=== PATIENT | female | born 1940 | race Caucasian/White ===

== ENCOUNTER 2016-10-25 11:49 | Day surgery (SDC) | payer MEDICARE, BC ==
[~2016-10-25 11:49] MED LIST: Acetaminophen TAB* 325 MG PO PRN; Buffered Lidocaine 0.9% SYRIN* 5 ML/SYR SYRINGE INTRADERM ONE; Ondansetron INJ* 2 MG/ML VIAL IV PRN
[2016-10-25] MEDS ORDERED: Midazolam* 1 MG/ML 2 ML VIAL (2 MG) ONE (12:40)
[2016-10-25] MEDS ORDERED: fentaNYL* 50 MCG/ML 2 ML VIAL (100 MCG VIAL) ONE (12:40)
[2016-10-25] MEDS ORDERED: Buffered Lidocaine 0.9% SYRIN* 5 ML/SYR SYRINGE ONE (13:02)
[2016-10-25] MEDS ORDERED: Lidocaine 1% INJ* 10 MG/ML 30 ML SDV ONE (13:08)
[2016-10-25] MEDS ORDERED: Lidocaine 2% PF * 5 ML VIAL ONE (13:48)
[2016-10-25] MEDS ORDERED: Propofol* 10 MG/ML 20 ML BTL IV PUSH ONE (13:48)
[2016-10-25 14:34] VITALS: BP 132/72
--- NOTE | 2016-10-26 03:37 | OP ---
DATE OF OPERATION: 10/25/16 - [facility] DATE OF : 36 SURGEON: Dr. Ramos. RAIL CAR PAINTER/SANDBLASTER: BRODIE Marino ANESTHESIOLOGIST: Dr. Avila ANESTHESIA: Local MAC. PRE-OP DIAGNOSES: Right index and long finger trigger finger and right carpal tunnel syndrome. POST-OP DIAGNOSES: Right index and long finger trigger finger and right carpal tunnel syndrome. OPERATIVE PROCEDURE: Right index and long finger trigger release and carpal tunnel release. ESTIMATED BLOOD LOSS: Zero. TOURNIQUET TIME: Approximately 10 minutes. INDICATIONS FOR PROCEDURE: Tai is a 75-year-old female who complains of numbness and tingling in the median nerve distribution of her right hand and triggering of her right index and long fingers. Nerve conduction study shows carpal tunnel syndrome on the right. She presents for carpal tunnel release on the right and long and finger trigger release. DESCRIPTION OF PROCEDURE: The patient was brought to the operating room, was given a sedation anesthetic and a local infiltration of 10 cc of 1% plain lidocaine in the palm of the right hand. Skin of her right hand and forearm was prepped and draped in the usual sterile fashion. The hand and forearm were exsanguinated and the tourniquet elevated to 250 mmHg. A transverse incision was made centered over the A1 irene of the right index finger. We dissected bluntly through the subcutaneous tissue down to the A1 irene. The digital neurovascular bundles were retracted by the registered nurse surgical services, Jory Barone. The A1 irene was incised longitudinally, completely releasing the flexor tendons which were in good condition. The incision was extended towards the middle finger then and again we bluntly dissected down through the A1 irene of the middle finger. Digital neurovascular bundles were again retracted and the A1 irene was incised longitudinally, completely releasing the flexor tendons which were in good condition. The wound was irrigated and the skin edges reapproximated with 4-0 nylon suture. Next a longitudinal incision was made in the palm in line with the ring finger between the hypothenar and thenar eminence , dissected sharply through the subcutaneous tissue down to the transverse carpal ligament. The ligament was divided sharply with a knife and then more proximally with the scissors. The nerve was dissected free from the surrounding tissue. There is an area of significant compression at the mid portion of the ligament. The wound was irrigated and skin edges reapproximated with 4-0 nylon suture. The wound was dressed with Xeroform, 4x4, Webril, and an Yossi wrap. The patient tolerated the procedure well, was brought to the recovery room in good condition. [id number]/[facility] #: [id number] MTDD
== END 2016-10-25 14:50 | disposition home or self-care (01) ==
LOC: OREAST 11:49
PROVIDERS: ATTEND Orthopaedic Surgery
PROC: 0LN70ZZ Release Right Hand Tendon, Open Approach (ICD-10-PCS; principal; 2016-10-25 13:30)
PROC: 0LN70ZZ Release Right Hand Tendon, Open Approach (ICD-10-PCS; 2016-10-25 13:30)
DX: G56.01 Carpal tunnel syndrome, right upper limb (principal); M65.321 Trigger finger, right index finger; M65.331 Trigger finger, right middle finger; I10 Essential (primary) hypertension; I45.10 Unspecified right bundle-branch block; E03.9 Hypothyroidism, unspecified; D64.9 Anemia, unspecified
CPT/HCPCS: J2001; J2250; J2704; J3010

== ENCOUNTER 2016-11-04 12:59 | Emergency (ER) | payer MEDICARE, BC ==
[2016-11-04 13:25] VITALS: BP 140/69
--- NOTE | 2016-11-04 14:06 | UC ---
Upper Extremity HPI - HPI Summary HPI Summary: Pt had R hand surgery 10/25/[address] Ramos, had carpal tunnel release as well as tendon surgery for ?trigger finger.? Had previous carpal tunnel release on LUE and did not have any problems with post-surgical pain, but the extra procedure is making it hard for pt to use her walker/cane. Took tramadol after surgery, did not help. Now PA rx APAP with codeine yesterday but pain is still bad. At follow-up visit yesterday incisions were cleaned and inspected, and pt was told they were healing well without signs of infection or complication. - History of Current Complaint Chief Complaint: UCUpperExtremity Stated Complaint: HAND PAIN S/P SURGERY Time Seen by Provider: 11/04/16 13:04 Hx Obtained From: Patient Hx Last Menstrual Period: 20 years ago ?: No Onset/Duration: Gradual Onset, Lasting Weeks Severity Initially: Moderate Severity Currently: Moderate Location Of Pain: Is Discrete @ Character: Sharp, Stiffness Aggravating Factor(s): Movement Alleviating Factor(s): Nothing Related History: Dominant Hand Right - Allergies/Home Medications Allergies/Adverse Reactions: Allergies Allergy/AdvReac Type Severity Reaction Status Date / Time Dextromethorphan Allergy Intermediate BONE PAIN Verified 11/04/16 13:11 Mometasone [From Nasonex] Allergy Intermediate STUFFY NOSE Verified 11/04/16 13: 11 Prednisone Allergy Intermediate Rash Verified 11/04/16 13:11 Cimetidine Allergy FLU Verified 11/04/16 13:11 SYMPTOMS NSAIDs Allergy gi pain Verified 11/04/16 13:11 Statins Allergy FIBROMYALGI Verified 11/04/16 13:11 A PMH/Surg Hx/FS Hx/Imm Hx Endocrine History: Thyroid Disease Cardiovascular History: Hypertension - Surgical History Surgical History: Yes Surgery Procedure, Year, and Place: 2001, RIGHT KNEE, [facility] , ;. LAMINECTOMY LOW BACK, SPINAL STENOSIS, [place] 2002;. LT CARPAL TUNNEL , [place], ;2012. CATARACT ;[place], 2012. HEART CATH (NO STENTS - ALL CLEAR). RIGHT carpal tunnel 10/25/16 - Family History Known Family History: Positive: Hypertension - Social History Occupation: Retired Alcohol Use: None Substance Use Type: None, Prescribed Smoking Status (MU): Never Smoked Tobacco Have You Smoked in the Last Year: No - Immunization History Most Recent Influenza Vaccination: NONE 2015 Most Recent Tetanus Shot: UTD Most Recent Pneumonia Vaccination: UTD Review of Systems Constitutional: Negative Skin: Negative Eyes: Negative ENT: Negative Respiratory: Negative Cardiovascular: Negative Gastrointestinal: Negative Genitourinary: Negative Motor: Negative Neurovascular: Negative Musculoskeletal: Decreased ROM - R hand Neurological: Negative Psychological: Negative All Other Systems Reviewed And Are Negative: Yes Physical Exam Triage Information Reviewed: Yes Appearance: Well-Appearing, No Pain Distress, Obese Vital Signs: Initial Vital Signs Temp 97.8 F 11/04/16 13:11 Pulse 72 11/04/16 13:11 Resp 18 11/04/16 13:11 BP 140/69 11/04/16 13:11 Pulse Ox 97 11/04/16 13:11 Vital Signs Reviewed: Yes Eye Exam: Normal, Other - PERRL Eyes: Positive: Conjunctiva Clear ENT Exam: Normal ENT: Positive: Normal ENT inspection, Hearing grossly normal, Pharynx normal, TMs normal Dental Exam: Normal Neck exam: Normal Respiratory Exam: Normal Respiratory: Positive: Chest non-tender, Lungs clear, Normal breath sounds, No respiratory distress, No accessory muscle use Cardiovascular Exam: Normal Cardiovascular: Positive: RRR, No Murmur Musculoskeletal: Positive: 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, ROM Limited @ - R hand Neurological Exam: Normal Neurological: Positive: Alert Psychological Exam: Normal Skin Exam: Other - surgical incisions not uncovered since they were dressed by surgeon's office yesterday and there have been no new injuries or symptoms in the last 24 hours Upper Extremity Course/Dx - Differential Dx/Diagnosis Provider Diagnoses: post-surgical pain RUE Discharge - Discharge Plan Condition: Stable Disposition: HOME Prescriptions: celeCOXIB CAP* [CeleBREX CAP*] 100 mg PO BID #14 cap Patient Education Materials: Pain Management After Surgery (GEN) Referrals: Bell Washington NP [Primary Care Provider] - Erika Ramos MD [Medical Doctor] - Additional Instructions: Start taking the celecoxib twice daily and use the acetaminophen with codeine 4 times daily as needed for severe or nighttime pain. You can pull back on the codeine as your pain improves. Please follow up with Dr. Ramos's office as planned; if you have new or worsening pain, please call them for a more urgent follow-up. You can come back here if you have new symptoms or injury.
== END 2016-11-04 14:25 | disposition home or self-care (01) ==
LOC: UCCORT 12:59
DX: G89.18 Other acute postprocedural pain (principal); I10 Essential (primary) hypertension; Z88.6 Allergy status to analgesic agent; Z88.8 Allergy status to other drugs, medicaments and biological substances
CPT/HCPCS: 99212; G0463

== ENCOUNTER 2016-11-19 12:38 | Emergency (ER) | payer MEDICARE, BC ==
--- NOTE | 2016-11-19 14:00 | UC ---
Hand/Wrist HPI - HPI Summary HPI Summary: Post op left hand pain---pain on the palm from a trigger finger release 2 weeks ago---hurts to hold on to her cane or walker - History Of Current Complaint Chief Complaint: DARLYNkin Stated Complaint: RIGHT HAND PAIN Time Seen by Provider: 11/19/16 13:15 Hx Obtained From: Patient Hx Last Menstrual Period: 20 years ago ?: No Mechanism Of Injury: 2 weeks post op Onset/Duration: Gradual Onset, Lasting Weeks - 2, Still Present Severity Initially: Moderate Severity Currently: Moderate Pain Intensity: 5 Pain Scale Used: 0-10 Numeric Character Of Pain: Dull, Aching, Stiffness Aggravating Factor(s): Movement, Other - pressure Alleviating: OTC Meds, Other - both tylenol abd hydrocodone help her pain Associated Signs And Symptoms: Positive: Negative Related History: Dominant Hand Right - Allergies/Home Medications Allergies/Adverse Reactions: Allergies Allergy/AdvReac Type Severity Reaction Status Date / Time Dextromethorphan Allergy Intermediate BONE PAIN Verified 11/19/16 13:25 Mometasone [From Nasonex] Allergy Intermediate STUFFY NOSE Verified 11/19/16 13: 25 Prednisone Allergy Intermediate Rash Verified 11/19/16 13:25 Cimetidine Allergy FLU Verified 11/19/16 13:25 SYMPTOMS Statins Allergy FIBROMYALGI Verified 11/19/16 13:25 A PMH/Surg Hx/FS Hx/Imm Hx Previously Healthy: No Endocrine History: Diabetes Cardiovascular History: Hypertension Psychological History: Anxiety - Surgical History Surgical History: Yes Surgery Procedure, Year, and Place: 2001, RIGHT KNEE, [facility] , ;. LAMINECTOMY LOW BACK, SPINAL STENOSIS, [place] 2002;. LT CARPAL TUNNEL , [place] [facility], ;2012. CATARACT ;raghav, 2012. HEART CATH (NO STENTS - ALL CLEAR). RIGHT carpal tunnel WITH TRIGGER FINGER RELEASE 10/25/16 - NO DAREN(OK TO SCAN BEFORE 6 WEEK WAITING TIME PER DR MORAN) - Family History Known Family History: Positive: Hypertension - Social History Occupation: Retired Lives: With Family Alcohol Use: None Substance Use Type: None, Prescribed Smoking Status (MU): Never Smoked Tobacco Have You Smoked in the Last Year: No - Immunization History Most Recent Influenza Vaccination: NONE 2015 Most Recent Tetanus Shot: UTD Most Recent Pneumonia Vaccination: UTD Review of Systems Constitutional: Negative Skin: Negative Eyes: Negative ENT: Negative Respiratory: Negative Cardiovascular: Negative Gastrointestinal: Negative Genitourinary: Negative Motor: Negative, Other - full rom and equal strength in all fingers Neurovascular: Negative Musculoskeletal: Negative, Arthralgia - palm of right hand Neurological: Negative Psychological: Negative All Other Systems Reviewed And Are Negative: Yes Physical Exam Triage Information Reviewed: Yes Appearance: Well-Appearing, No Pain Distress, Obese Vital Signs Reviewed: Yes Eye Exam: Normal Eyes: Positive: Conjunctiva Clear ENT Exam: Normal ENT: Positive: Normal ENT inspection, Hearing grossly normal. Negative: Nasal congestion, Nasal drainage, Trismus, Muffled/hoarse voice Dental Exam: Normal Neck exam: Normal Neck: Positive: Supple, Nontender Respiratory Exam: Normal Respiratory: Positive: Chest non-tender, Lungs clear, Normal breath sounds, No respiratory distress, No accessory muscle use Cardiovascular Exam: Normal Cardiovascular: Positive: RRR, No Murmur, Pulses Normal, Brisk Capillary Refill Musculoskeletal Exam: Normal Musculoskeletal: Positive: Strength Intact, ROM Intact, No Edema Neurological Exam: Normal Neurological: Positive: Alert, Muscle Tone Normal Psychological Exam: Normal Psychological: Positive: Normal Response To Family Skin Exam: Normal Skin: Positive: Other - healing wound from carpal tunnel and trigger finger release Hand/Wrist Course/Dx - Course Course Of Treatment: reviewed and plan for pain medicine regieme, bulky dressing for comfort, follow with pcp and Dr. Ramos as planned - Differential Dx/Diagnosis Differential Diagnosis/HQI/PQRI: Cellulitis, Contusion, Fracture, Sprain, Strain , Tendonitis Provider Diagnoses: Post op right hand pain Discharge - Discharge Plan Condition: Stable Disposition: HOME Prescriptions: Hydrocodone-Acetaminophen [Hydrocodone/Acetaminophen 5-325 mg] 1 tab PO BID PRN #14 tab MDD 2 PRN Reason: Pain Patient Education Materials: Acetaminophen (By mouth), Hydrocodone/ Acetaminophen (By mouth), Warm Compress or Soak (ED) Referrals: Bell Washington NP [Primary Care Provider] - 1 Week
[2016-11-19 14:23] VITALS: BP 119/66
== END 2016-11-19 14:23 | disposition home or self-care (01) ==
LOC: UCCORT 12:38
DX: G89.18 Other acute postprocedural pain (principal); E11.9 Type 2 diabetes mellitus without complications; I10 Essential (primary) hypertension; F41.9 Anxiety disorder, unspecified; M25.541 Pain in joints of right hand; E66.9 Obesity, unspecified
CPT/HCPCS: 99213; G0463

== ENCOUNTER 2016-12-10 14:19 | Emergency (ER) | payer MEDICARE, BC ==
[2016-12-10 16:23] VITALS: BP 143/70
--- NOTE | 2016-12-10 16:49 | UC ---
Back Pain HPI - History of Current Complaint Chief Complaint: UCBackPain Stated Complaint: BACK PAIN Time Seen by Provider: 12/10/16 16:33 Hx Obtained From: Patient Hx Last Menstrual Period: 20 years ago ?: No Onset/Duration: Still Present - Chronic back pain since before 1999., Worse Since - in the last month worse since 3 falls in October. Severity Initially: Severe - with movement. Severity Currently: Moderate Back Pain: Is Discrete @ - from the low back. Character: Dull, Throbbing Aggravating: Movement Alleviating: Rest Associated Signs And Symptoms: Positive: Weakness, Numbness, Bladder Incontinence, Pain with Weight Bearing Related History: Previous Back Injury - Allergies/Home Medications Allergies/Adverse Reactions: Allergies Allergy/AdvReac Type Severity Reaction Status Date / Time Dextromethorphan Allergy Intermediate BONE PAIN Verified 12/10/16 16:00 Mometasone [From Nasonex] Allergy Intermediate STUFFY NOSE Verified 12/10/16 16: 00 Prednisone Allergy Intermediate Rash Verified 12/10/16 16:00 Cimetidine Allergy FLU Verified 12/10/16 16:00 SYMPTOMS Statins Allergy FIBROMYALGI Verified 12/10/16 16:00 A Home Medications: Home Medications Oxycodone TAB(NF) [Oxycodone HCl 10 MG] 5 mg PO Q6H PRN 12/10/16 [History Confirmed 12/10/16] Turmeric (Curcuma Longa) [Turmeric] 300 mg PO 12/10/16 [History] PMH/Surg Hx/FS Hx/Imm Hx Endocrine History: Hypothyroidism Cardiovascular History: Hypertension - Surgical History Surgical History: Yes Surgery Procedure, Year, and Place: 2001, RIGHT KNEE, [facility] , ;. LAMINECTOMY LOW BACK, SPINAL STENOSIS, [place] 2003;. LT CARPAL TUNNEL , [place], ;2012. CATARACT ;[place], 2012. HEART CATH (NO STENTS - ALL CLEAR). RIGHT carpal tunnel WITH TRIGGER FINGER RELEASE 10/25/16 - NO DAREN(OK TO SCAN BEFORE 6 WEEK WAITING TIME PER DR MORAN) - Family History Known Family History: Positive: Hypertension - Social History Occupation: Retired Lives: With Family Alcohol Use: None Substance Use Type: None, Prescribed Smoking Status (MU): Never Smoked Tobacco Have You Smoked in the Last Year: No - Immunization History Most Recent Influenza Vaccination: NONE 2015 Most Recent Tetanus Shot: UTD Most Recent Pneumonia Vaccination: UTD Review of Systems Musculoskeletal: Arthralgia All Other Systems Reviewed And Are Negative: Yes Physical Exam Triage Information Reviewed: Yes Appearance: Well-Appearing, No Pain Distress, Well-Nourished Vital Signs: Initial Vital Signs Temp 99.2 F 12/10/16 16:10 Pulse 73 12/10/16 16:10 Resp 18 12/10/16 16:10 BP 143/70 12/10/16 16:10 Pulse Ox 100 12/10/16 16:10 Vital Signs Reviewed: Yes Neck exam: Normal Respiratory Exam: Normal Cardiovascular Exam: Normal Abdomen Description: Positive: Other: - rectal tone Musculoskeletal: Positive: ROM Limited @ - lumbar spine., Other: - Tender over the lumbar spinous processes. Neurological: Positive: Other: - DTR absent right patella and achilles. Decreased sensation right lower extremity L3 L4 dermatomes. Psychological Exam: Normal Skin Exam: Normal Back Pain Course/Dx - Differential Dx/Diagnosis Differential Diagnosis/HQI/PQRI: Cauda Equina Syndrome, Compressive Cord Syndrome, Epidural Abscess, Fracture, Herniated Disc Provider Diagnoses: Cauda Equina syndrome. Spinal stenosis - Physician Notifications Discussed Care With: ALEJANDRO - Dr. Menard at [facility] referred to ER. Time Discussed With Above Provider: 18:04 Instructed by Provider To: Transfer - To [facility] Spoke with ER. DR. Easton accepting. Discharge - Discharge Plan Condition: Guarded Disposition: TRANS HIGHER LVL OF CARE FAC Patient Education Materials: Lumbar Spinal Stenosis (ED) Additional Instructions: GO STRAIGHT TO [facility] ER. DO NOT HAVE ANYTHING TO EAT OR DRINK.
--- NOTE | 2016-12-10 17:49 | RAD ---
HISTORY: Trauma, back pain COMPARISONS: MRI dated November 16, 2016 VIEWS: 5 , Frontal, lateral, coned-down lateral sacral, and bilateral oblique views of the lumbar spine. FINDINGS: ALIGNMENT: There is a scoliotic curvature of the spine. There is grade 2 anterolisthesis of L3 on L4. This is similar to the previous MRI examination. VERTEBRAL BODIES: There is multilevel anterolateral marginal osteophyte formation with sclerotic active endplate changes. The vertebral bodies are preserved in height. There is diffuse osteopenia. JOINTS: There is extensive facet osteoarthritic change. INTERVERTEBRAL DISCS: There is diffuse loss of intervertebral disc height. SOFT TISSUE: Unremarkable. OTHER: The pelvis is unremarkable. The lung bases are clear. IMPRESSION: 1. SCOLIOSIS. 2. DEGENERATIVE DISC DISEASE AND OSTEOARTHRITIS. 3. THERE IS SPONDYLOLISTHESIS AT L3-L4. 4. THE APPEARANCE IS SIMILAR TO THE MRI OF NOVEMBER 16, 2016
== END 2016-12-10 18:15 | disposition short-term general hospital (02) ==
LOC: UCCORT 14:19
DX: M48.06 Spinal stenosis, lumbar region (principal); G83.4 Cauda equina syndrome
CPT/HCPCS: 72110; 99212; G0463

== ENCOUNTER 2018-11-24 17:54 | Emergency (ER) | payer MEDICARE, BC ==
[2018-11-24 18:14] VITALS: BP 155/69
--- NOTE | 2018-11-24 18:17 | UC ---
UC General HPI - HPI Summary HPI Summary: Patient is a 78 year old female, who presents today to the urgent care with feeling of nausea, sweating, clammy and dizzy around 11 AM today. She is feeling much better now. She reports that she was riding a stationary bike and went to the kitchen after workout and status symptoms started then, had similar symptoms on November 10 when she ate chocolate cake and resolved spontaneously. She had been trying to avoid sugar and trying gluten-free diet. She talked to the nurse today who recommended her to come here for checkup Since morning she reports that she has eaten only 1 green tea and one energy far in one peach. She took 3-5 sprays of medical marijuana that she takes for anxiety and back pain. Denies any fever, chills, cough, chest pain or shortness of breath . No diaphoresis. Denies any abdominal pain , nausea or vomiting , diarrhea or constipation. She reports that she feels "clammy" and warm right now. Has history of meningioma which is a small and has been seeing a neurosurgeon at [facility] and is scheduled for MRI of her brain next week. She denies any more nausea. - History of Current Complaint Chief Complaint: UCGeneralIllness Stated Complaint: NAUSEA,SWEATS,DIZZINESS Time Seen by Provider: 11/24/18 18:15 Hx Obtained From: Patient Hx Last Menstrual Period: 20 years ago Pain Intensity: 0 - Allergy/Home Medications Allergies/Adverse Reactions: Allergies Allergy/AdvReac Type Severity Reaction Status Date / Time prednisone Allergy Rash Verified 11/24/18 18:14 cimetidine AdvReac GI Upset Verified 11/24/18 18:14 dextromethorphan AdvReac Joint Pain Verified 11/24/18 18:14 mometasone furoate AdvReac Congestion Verified 11/24/18 18:14 [From Nasonex] [id number] Reductase AdvReac GI Upset Verified 11/24/18 18:14 Inhibitor Home Medications: Home Medications Solifenacin Succinate [Vesicare] 1 tab DAILY 11/24/18 [History Confirmed ] PMH/Surg Hx/FS Hx/Imm Hx - Additional Past Medical History Additional PMH: Past Medical History : Hypertension, meningioma Past Surgical History: Bilateral carpal tunnel syndrome, cataract surgery, right knee surgery Family History : non contributory Social History : no alcohol, non smoker, medical marijuana. Previously Healthy: Yes - Surgical History Surgical History: Yes Surgery Procedure, Year, and Place: CATARACTS. [place] CARPAL TUNNEL. RIGHT KNEE - Family History Known Family History: Positive: Hypertension, Non-Contributory - Social History Alcohol Use: None Substance Use Type: Other Substance Use Comment - Amount & Last Used: MEDICAL MARIJUANA Smoking Status (MU): Never Smoked Tobacco Have You Smoked in the Last Year: No - Immunization History Most Recent Influenza Vaccination: NONE 2015 Most Recent Tetanus Shot: UTD Most Recent Pneumonia Vaccination: UTD Review of Systems All Other Systems Reviewed And Are Negative: Yes Constitutional: Positive: Fatigue Skin: Positive: Negative Eyes: Positive: Negative ENT: Positive: Negative Respiratory: Positive: Negative. Negative: Shortness Of Breath Cardiovascular: Positive: Negative. Negative: Chest Pain Gastrointestinal: Positive: Nausea Genitourinary: Positive: Negative Motor: Positive: Negative Neurovascular: Positive: Negative Musculoskeletal: Positive: Negative, Calf Tenderness Psychological: Positive: Negative Is Patient Immunocompromised?: No Physical Exam - Summary Physical Exam Summary: Physical Exam: Const: Appears well. No signs of apparent distress present. Alert and oriented x 3. Musculo: Walks with a normal gait. Head/Face: Atraumatic, normocephalic on inspection. Eyes: EOMI and PERRLA in both eyes. Conjunctivae clear. No discharge noted ENT: Hearing normal No pharyngeal erythema or exudates . Uvula is midline. No cervical or submandibular lymphadenopathy noted. Respiratory: Respirations are unlabored. Lungs clear to auscultation bilaterally, no wheezing , rhonchi or rales noted . CVS: Regular rate and Rhythm, S1S2 normal , no murmurs identified. Extremities: Peripheral circulation is grossly normal. Pulses 2+ Abdomen : Soft non tender , nondistended , Bowel sounds present . No guarding , rebound tenderness or rigidity noted. Skin: No lesions or rash located on the upper extremities or on the lower extremities. Neuro: Cranial nerves II to XII intact, motor and sensory intact. DTR Intact bilaterally. Mood is normal. Affect is normal. Triage Information Reviewed: Yes Vital Signs: Initial Vital Signs Temp 98.4 F 11/24/18 17:58 Pulse 72 11/24/18 17:58 Resp 22 11/24/18 17:58 BP 155/69 11/24/18 17:58 Pulse Ox 99 08/10/19 17:58 Vital Signs Reviewed: Yes Diagnostics - EKG Cardiac Rate: NL Cardiac Rhythm: Sinus: Normal ST Segment: Normal Summary of EKG Findings: Sinus rhythm with a heart rate of 75, regular rhythm. First-degree AV block. Here inversion in V1 and lead III, left axis division. low voltage. ? RBBB Course/Dx - Course Course Of Treatment: During the visit today, we obtained an EKG which had some findings but nothing prior to compare and her blood sugar was 97 . Concern for any electrolyte imbalance since she has not had anything much by mouth since morning . Patient needs additional testing, thus ER transfer advised and patient agrees. Report called to the ER provider (Teresa Castrejon NP) at [facility], advised provider of the history, physical examination, and duration of illness and the need for definitive management. Her will drive her to the ER. Her vitals were stable at the time of discharge - Diagnoses Provider Diagnosis: Dizziness, Fatigue, Dehydration Discharge - Sign-Out/Discharge Documenting (check all that apply): Patient Departure All imaging exams completed and their final reports reviewed: No Studies - Discharge Plan Condition: Stable Disposition: HOME-RECOMMEND TO ED Patient Education Materials: Dizziness (ED) Referrals: Bell Washington NP [Primary Care Provider] - Additional Instructions: Please please go to the ER immediately for further testing. I have called the report provider at [facility]. - Billing Disposition and Condition Condition: STABLE Disposition: Home-Recommend to ED
== END 2018-11-24 19:14 | disposition home health service (06) ==
LOC: UCCORT 17:54
DX: R42 Dizziness and giddiness (principal); R53.83 Other fatigue; E86.0 Dehydration; D32.9 Benign neoplasm of meninges, unspecified; I10 Essential (primary) hypertension
CPT/HCPCS: 93005; 99212; G0463